=== PATIENT | female | born 1955 | race Two or more races ===

== ENCOUNTER 2019-03-10 14:03 | Emergency (ER) | payer MEDICAID, OTHER, SELFPAY ==
[~2019-03-10] VITALS: Ht 152.4 cm; Wt 62.1 kg
[2019-03-10 14:13] VITALS: BP 151/74
[2019-03-10] MEDS ORDERED: BENZOCAINE 20% SPRAY 0.5ML TP ONE (14:30)
[2019-03-10] MEDS ORDERED: BENZOCAINE AEROSOL SPRAY 20%, 60ML ONE (14:53)
[2019-03-10] MEDS ORDERED: BENZOCAINE 20% SPRAY 0.5ML ONE (15:01)
--- NOTE | 2019-03-10 16:07 | NUR ---
PT REPORTS SHE FEELS MUCH BETTER AND WANTS TO GO. PT THINKS THE BONE HAS PASSED. DR. LLOYD AWARE.
--- NOTE | 2019-03-10 16:27 | NUR ---
DR. LLOYD REQUESTING ESOPHAGRAM ANFD CT BE CANCLLED SINCE PT PASSED BONE.
== END 2019-03-10 16:33 | disposition home or self-care (01) ==
LOC: ED 16:25
DX: T18.128A Food in esophagus causing other injury, initial encounter (principal); X58.XXXA Exposure to other specified factors, initial encounter; Y93.89 Activity, other specified; Y92.89 Other specified places as the place of occurrence of the external cause; Y99.8 Other external cause status
CPT/HCPCS: 70360; 92511; 99284